=== PATIENT | female | born 1970 | race Caucasian/White ===

== ENCOUNTER 2019-05-17 06:45 | Day surgery (SDC) | payer SELFPAY ==
[2019-05-16 12:26] VITALS: BMI 24.0
[2019-05-17 07:11] VITALS: BP 113/78; RESP 18; TEMP 37; O2SAT 100
--- NOTE | 2019-05-17 07:17 | ANES.PREANES ---
Pre-Anesthetic Assessment Pre-Anesthetic Assessment: Height/Weight: Height 1.63 m Weight 63.503 kg Temp Resp BP Pulse Ox 98.6 F 18 113/78 100 05/17/19 07:11 05/17/19 07:11 05/17/19 07:11 05/17/19 07:11 Preop Diagnosis: acid reflux, screening Proposed Procedure: Operation Date: 05/17/19 07:15 Proposed Procedures p EGD/COLON(Not Applicable) - Mg Mitchell MD s Colonoscopy(Not Applicable) - Mg Mitchell MD Familial anesthetic complications: none Was Beta Radha taken within 24 hours: N/A Last intake: Intake Last Liquid Date 05/16/19 Last Liquid Time 21:00 Social: Social History: Alcohol (occasional) and Tobacco Packs per day: 1 Pack years: 25 Exam: Pre-Anes Outpt Exam: alert, oriented x 3, clear to auscultation bilaterally and regular rate & rhythm Airway: Submandibular: WNL Cervical ROM: WNL MP: 1 Dentition: False History/ROS: Other Pulmonary: Pulmonary: None reported CV/HEM: CV/HEM: None reported : : None reported Hepatic: Hepatic: None reported GI: GI: GERD (controlled) Metabolic: Metabolic: Thyroid Musc/skel: Musc/skel: Lower Back Pain and Weakness (legs) Neuropsych: Neuropsych: Neuropathy Anesthetic Plan: ASA status: II Anesthesia: MAC Risk of > 500 ml blood loss (7ml/kg in children): No Data Anesthesia Cardiac Studies: No Data to Display
[2019-05-17] MEDS: sodium chloride 0.9% 1,000 ML 30 ML (07:20)
--- NOTE | 2019-05-17 07:55 | PM.HPUD ---
H&P update H&P Update: DATE OF SURGERY/PROCEDURE: 05/17/19 DATE H&P PERFORMED: 03/06/19 PLANNED PROCEDURE: Operation Date: 05/17/19 07:15 Proposed Procedures p EGD/COLON(Not Applicable) - Mg Mitchell MD s Colonoscopy(Not Applicable) - Mg Mitchell MD Full H&P HPI: PLANNED PROCEDURE: EGD and colonoscopy HPI: Chief complaint Abdominal pain HPI This is a pleasant 48 years old female patient with history of abdominal pain GERD and vomiting, patient gives history of peptic ulcer disease, she was also tested positive for occult blood in stool, patient never had a colonoscopy before. ROS: ROS: All systems have been reviewed negative except as per the above Pertinent Exam Findings: PHYSICAL EXAM: alert, oriented x 3, clear to auscultation bilaterally and regular rate & rhythm OTHER PERTINENT EXAM FINDINGS: Abdominal examination nontender nondistended soft no organomegaly no guarding or rigidity A&P Assessment and plan (1) Abdominal pain: Plan of care; After thorough history and physical examination and reviewing the chart, plan to perform a diagnostic esophagogastroduodenoscopy and screening colonoscopy with possible biopsy and possible polypectomy, in the GI lab. Rationale was carefully and clearly discussed with the patient.Appropriate consent have been reviewed and signed Informed consent per chart were,Indications, risks, benefits, and alternatives were all discussed with the patient and did agree to proceed. Verbal and written Instructions were given to the patient for colonoscopy prep Status: Acute Code(s): R10.9 - Unspecified abdominal pain
[2019-05-17 08:28] VITALS: BP 112/77; PULSE 79; RESP 16; TEMP 36.3
--- NOTE | 2019-05-17 08:32 | ANE.PACU ---
 Inpatient post-anesthesia follow up: Airway intact: Yes Vital signs: Temperature 97.4 F Pulse Rate [Right Radial] 79 Respiratory Rate 16 Blood Pressure [Le ft Arm] 112/77 Pulse Oximetry 100 Oxygen Delivery Me thod Room Air Oxygen Flow Rate Fraction of Inspir ed Oxygen Hydration adequate: Yes Nausea and vomiting: No Pain level: 1 Mental status: Baseline
[2019-05-17 08:48] VITALS: BP 107/73; PULSE 83; RESP 18; TEMP 36.3; O2SAT 98
== END 2019-05-17 09:03 | disposition home or self-care (01) ==
PROVIDERS: Family Provider Nurse Practitioner Family; PCP Nurse Practitioner Family; Visit Provider Surgery
PROC: 0DJ08ZZ Inspection of Upper Intestinal Tract, Via Natural or Artificial Opening Endoscopic (ICD-10-PCS; CPT 43235; principal; 2019-05-17 07:15)
PROC: 0DJD8ZZ Inspection of Lower Intestinal Tract, Via Natural or Artificial Opening Endoscopic (ICD-10-PCS; CPT 45378; 2019-05-17 07:15)
DX: Z12.11 Encounter for screening for malignant neoplasm of colon (principal); K21.9 Gastro-esophageal reflux disease without esophagitis; Z87.11 Personal history of peptic ulcer disease; F17.210 Nicotine dependence, cigarettes, uncomplicated; Z79.891 Long term (current) use of opiate analgesic
CPT/HCPCS: 12345; 43235; 45378; 96365; J2001; J2704; J7030

== ENCOUNTER 2021-12-01 09:27 | Outpatient (CLI) | payer MEDICAID, SELFPAY ==
--- NOTE | 2021-12-01 09:33 | CT_ITS ---
WS: [id number] CT NECK TECHNIQUE: Contrast-enhanced CT of the neck with coronal and sagittal reformatted images. CLINICAL INFORMATION: NONTOXIC MULTINODULAR GOITER/SWELLING,MASS LUMP COMPARISON: None. DLP: 201.[address] scans at [facility] use at least one of these dose optimization techniques: automated e xposure control; mA and/or kV adjustment per patient size (includes targeted exams where dose is matc hed to clinical indication); or iterative reconstruction. FINDINGS: Multinodular heterogeneous goiter with enlargement of the thyroid gland. Large RIGHT heterogeneous RI GHT thyroid nodule measuring 3.1 x 3.2 x 4.3 cm AP by transverse by craniocaudal. Calcified nodule at the isthmus measuring 1.9 x 1.6 x 3.1 CM. Partially visualized paranasal sinuses and mastoid air cells well aerated. Normal posterior nasophary nx. Normal parapharyngeal fat. Normal parotid glands. Normal submandibular glands. No evidence of sup raglottic or glottic mass. Normal vallecula and piriform sinuses. Subglottic airway is normal. Lung a pices are well aerated. Straightening of the normal cervical lordosis with mild spondylitic changes. Mild central canal stenosis C3-C6. CT/CT neck w con* [id number] IMPRESSION: 1. Multinodular goiter with largest nodule in the RIGHT thyroid gland measurin g 3.1 x 3.2 x 4.3 cm AP by transverse by craniocaudal.This is progressed compar ed to September 25, 2015. 2. Additional notable nodule involving the isthmus with peripheral calcificati on measuring 1.9 x 1.6 x 3.1 CM. 3. Numerous smaller nodules in the LEFT thyroid gland similar in appearance to previous. 4. No cervical lymphadenopathy. 5. No other acute findings.
[2021-12-01] MEDS: iohexol 350 mg/mL 100 mL Btl IV (10:06)
== END 2021-12-01 09:28 | disposition home or self-care (01) ==
LOC: RAD 09:28
PROVIDERS: PCP Nurse Practitioner Family; Visit Provider Specialist
DX: E04.2 Nontoxic multinodular goiter (principal)
CPT/HCPCS: 70491

== ENCOUNTER → 2023-05-25 10:02 | Outpatient (BNVA) | payer MEDICAID, SELFPAY | PROVIDERS: PCP Nurse Practitioner Family; Visit Provider Student in an Organized Health Care Education/Training Program | DX: M65.312 Trigger thumb, left thumb | CPT/HCPCS: 73130 ==

== ENCOUNTER → 2024-10-25 12:29 | Outpatient (BNVA) | payer OTHER, SELFPAY | PROVIDERS: PCP Nurse Practitioner Family; Visit Provider Podiatrist Foot & Ankle Surgery | DX: M79.671 Pain in right foot (principal); D16.9 Benign neoplasm of bone and articular cartilage, unspecified; D16.32 Benign neoplasm of short bones of left lower limb | CPT/HCPCS: 73630 ==

== ENCOUNTER → 2025-01-25 08:05 | Outpatient (BNVA) | payer OTHER, SELFPAY | PROVIDERS: PCP Nurse Practitioner Family; Visit Provider Orthopaedic Surgery | DX: M48.061 Spinal stenosis, lumbar region without neurogenic claudication (principal) | CPT/HCPCS: 72110 ==